=== PATIENT | female | born 1970 | race Caucasian/White ===

== ENCOUNTER 2020-05-14 10:50 | Outpatient (CLI) | payer OTHER, SELFPAY ==
--- NOTE | 2020-05-14 10:56 | MM_ITS ---
WS: [id number] Bilateral screening digital mammogram, 05/14/2020 Clinical Data: SCREENING Comparison: 12/05/2017, 03/13/2015, 04/12/2013. Findings: The breast parenchymal pattern shows fibroglandular tissue. No spiculated masses or clustered calcifi cations are seen. There are no secondary signs of carcinoma. MM/[id number] Impression: 1. Negative bilateral mammogram unchanged. 2. Recommend annual screening mammograms. BIRADS: 1-Negative FOLLOW UP: 1 Year Follow-up The CAD bad cloth checker was used.
== END 2020-05-14 10:51 | disposition home or self-care (01) ==
LOC: RADSHAW 10:55
PROVIDERS: PCP Nurse Practitioner Family; Visit Provider Nurse Practitioner Family
DX: Z12.31 Encounter for screening mammogram for malignant neoplasm of breast (principal)
CPT/HCPCS: 77067

== ENCOUNTER → 2020-10-22 10:08 | Outpatient (BNVA) | payer OTHER, SELFPAY | PROVIDERS: PCP Nurse Practitioner Family; Visit Provider Internal Medicine | DX: E11.65 Type 2 diabetes mellitus with hyperglycemia (principal); E66.9 Obesity, unspecified; E78.5 Hyperlipidemia, unspecified; I10 Essential (primary) hypertension | CPT/HCPCS: 99205 ==

== ENCOUNTER → 2021-09-09 08:30 | Outpatient (BNVA) | payer BC, SELFPAY | PROVIDERS: PCP Nurse Practitioner Family; Visit Provider Internal Medicine | DX: E11.65 Type 2 diabetes mellitus with hyperglycemia (principal); E78.2 Mixed hyperlipidemia; E66.9 Obesity, unspecified; Z79.4 Long term (current) use of insulin; Z79.84 Long term (current) use of oral hypoglycemic drugs; Z87.891 Personal history of nicotine dependence; Z68.36 Body mass index [BMI] 36.0-36.9, adult | CPT/HCPCS: 99214 ==

== ENCOUNTER 2021-10-15 10:08 | Emergency (ER) | payer BC, SELFPAY ==
[2021-10-15 10:34] VITALS: BP 179/103; PULSE 106; RESP 22; TEMP 36.2; O2SAT 97; BMI 35.5
--- NOTE | 2021-10-15 10:42 | XR_ITS ---
WS: [id number] XR knee LT 3V* [id number] REASON FOR EXAM: injury FINDINGS: No definite acute fracture identified. There is some deformity of the lateral tibial plateau which ma y represent an old injury. There is no associated focal bony exostosis of the articular lateral femoral condyle. There are also focal areas of cortical thickening along the lateral margin of the lateral tibial plateau. The medial knee joint space is relatively preserved with small marginal osteophytes. Lateral knee filippo nt space demonstrates mild narrowing of its lateral most aspect. There appear to be multiple loose bodies within the knee joint. The patellofemoral joint space is intact. Enthesophytes from the ventral surface of the patella. Ther e appears to be a moderate knee joint effusion. There is a somewhat unusual appearing sclerosis and thickening of the tibial tuberosity and adjacent cortex. This is of unknown significance. XR/XR knee LT 3V* [id number] IMPRESSION: Multiple knee findings as above which may be related to previous trauma and pos ttraumatic osteoarthritis. No definite acute abnormality other than the presume d knee joint effusion noted.
[2021-10-15 10:44] VITALS: BP 179/103; PULSE 97; RESP 16; O2SAT 94
--- NOTE | 2021-10-15 10:54 | W.ED.EXTPRO ---
HPI - Extremity Problem General: Chief complaint: Extremity Injury, Lower Stated complaint: LEFT KNEE PAIN/INJURY Time Seen by Provider: 10/15/21 10:28 History of Present Illness: HPI Narrative: Patient states that she was out in the ER this morning her dogs were wrestling and knocked her down and she fell on a dirt road with her left knee and felt immediate pain. She was able to get up after about 10 minutes and ambulate back to the house. Complaint: joint pain Onset (ago): minute(s) Pain Consistency: constant Location: left and knee Severity scale (1-10): 4 Quality: aching Relieving factors: immobilization Exacerbating factors: range of motion and weight bearing Associated symptoms: Reports no associated symptoms; Deny chest pain, fever(s) or rash Review of Systems Const: Denies: fever(s), chills or body aches Eyes: Denies: change in vision or blurry vision ENMT: Denies: throat pain or nasal congestion Card: Denies: chest pain or dyspnea on exertion Resp: Denies: dyspnea, productive cough or non-productive cough GI: Denies: abdominal pain, nausea or vomiting Musc: Reports: joint pain (Left knee is in pain after a fall this morning); Denies: extremity pain Skin/Breast: Denies: rash Neuro: Denies: headache(s) Psych: Denies: anxiety or depression Sheldon/Lymph: Denies: easy bruising PFSH ED PFSH: Medical History (Updated 10/15/21 @ 11:32 by YUMIKO Vallecillo) HTN (hypertension) Hyperlipidemia Torn ACL Surgical History Hx of knee surgery Family History Other Obesity Social History Smoking and tobacco status: former smoker Alcohol intake: current Alcohol intake frequency: holidays/special occasions only Alcohol type: beer Household members: spouse Marital status: Number of children: 0 service: No Current occupational status: employed Current occupation: [employer] Current occupational exposures/hazards: Yes Physical Exam Const: COMMON NORMALS: no acute distress GENERAL APPEARANCE: cooperative Resp: COMMON NORMALS: normal respiratory effort Extremity: LEFT LOWER EXTREMITY: Yes knee joint (Tenderness to medial aspect. No bruising or swelling noted. Neurovascular) Left knee: Yes ROM (Pain with range of motion with extension and flexion.) Course Vital Signs: Vital signs: Vital Signs Temperature 97.1 F L 10/15/21 10:34 Pulse Rate 97 10/15/21 10:44 Respiratory Rate 16 10/15/21 10:44 Blood Pressure 179/103 10/15/21 10:44 Pulse Oximetry 94 10/15/21 10:44 MDM - Extremity (Nontraumatic) MDM Narrative: Medical decision making narrative: Patient has chronic knee problems already. Patient fell today and injured her knee worse. 4 years ago which received stem cell replacement from Dr. Alberto in both knees and she has had good success with that. X-ray shows chronic changes at left knee mild effusion. Patient was encouraged to follow-up with Dr. Alberto. Patient says she has brace and crutches she will use at home. Discharge Plan Discharge Patient Disposition: Home Clinical Impression: Acute knee pain Qualifiers: Laterality: left Qualified Code(s): M25.562 - Pain in left knee Condition: Stable Prescriptions: New Celebrex 100 mg capsule 100 mg PO BID Qty: 20 RF: 0 Voltaren Arthritis Pain 1 % gel 4 g topical QID Qty: 100 RF: 0 No Action metoprolol succinate 25 mg tablet extended release 24 hr 25 mg PO DAILY RF: 0 Trulicity 1.5 mg/0.5 mL pen injector SUBCUT RF: 0 atorvastatin 10 mg tablet 10 mg PO DAILY RF: 0 lisinopril 40 mg tablet 40 mg PO DAILY RF: 0 sertraline 25 mg tablet 25 mg PO DAILY RF: 0 trazodone 100 mg tablet 100 mg PO .HS RF: 0 glipizide 10 mg tablet 10 mg PO BID RF: 0 Lantus U-100 Insulin 100 unit/mL solution 72 unit SUBCUT DAILY RF: 0 metformin 1,000 mg tablet 1,000 mg PO BID Qty: 120 RF: 3 Discharge Orders: Discharge ED (Routine); Ordered 10/15/21 Ordered By: Jos Andrews Referrals: Loni Weber FNP [Primary Care Provider] - Discharge Diet: Usual diet Discharge Activity: Increase activity as tolerated Patient Instructions: Knee Sprain (ED) Activity Restrictions/Additional Instructions: Follow-up with medical provider as directed. Take medications as prescribed. Return to the ER or your medical provider if condition worsens. Please read and understand discharge instructions. If any questions ask please. Use brace and/or crutches that you have at home as needed. Follow-up with Dr. Alberto concerning treatment of chronic knee problems. Coding Level of Care Code ED City Designer for Jayce Jones Exam Expanded Problem Focused
[2021-10-15] MEDS: CELEcoxib 200 mg Capsule 400 MG PO (11:16)
[2021-10-15 11:43] VITALS: BP 195/92; PULSE 83; O2SAT 95
== END 2021-10-15 11:45 | disposition home or self-care (01) ==
PROVIDERS: Emergency Provider Nurse Practitioner Family; PCP Nurse Practitioner Family
DX: M25.562 Pain in left knee (principal); Z79.84 Long term (current) use of oral hypoglycemic drugs; Z79.4 Long term (current) use of insulin; I10 Essential (primary) hypertension; E78.5 Hyperlipidemia, unspecified; Z87.891 Personal history of nicotine dependence
CPT/HCPCS: 73562; 99283

== ENCOUNTER 2022-04-26 10:17 | Outpatient (CLI) | payer BC, SELFPAY ==
[2022-04-26 15:52] LABS: Estmated Average Glucose 200; Hemoglobin A1C 8.6 % (4.0-6.0)
== END 2022-04-26 10:18 | disposition home or self-care (01) ==
LOC: LAB 10:19
PROVIDERS: PCP Nurse Practitioner Family; Visit Provider Internal Medicine
DX: E11.65 Type 2 diabetes mellitus with hyperglycemia (principal)
CPT/HCPCS: 83036

== ENCOUNTER 2022-07-05 12:37 | Outpatient (CLI) | payer BC, SELFPAY ==
[2022-07-05 14:02] LABS: Estmated Average Glucose 183
[2022-07-05 14:22] LABS: Alanine Aminotransferase 11 U/L (0-33); Albumin Level 4.2 g/dL (3.5-5.2); Alkaline Phosphatase 54 U/L (35-105); Aspartate Amino Transferase 11 U/L (0-32); Blood Urea Nitrogen 9 mg/dL (6-20); Calcium 9.1 mg/dL (8.5-10.5); Carbon Dioxide 24 mmol/L (22-29); Chloride 103 mmol/L (98-107); Chol HDL Ratio 3.87 mg/dL (0.0-4.40); Cholesterol 147 mg/dL (0-200); Globulin 2.6 g/dL (1.3-4.6); Glomerular Filtration Rate 66.5 mL/min (90-130); Glucose 87 mg/dL (65-115); HDL Cholesterol 38 mg/dL (60-100); LDL Cholesterol Calculated 82 mg/dL (50-129); LDL HDL Ratio 2.16 RATIO (0.00-3.22); Osmolality Calculated 288 mOsm/kg (285-295); Sodium 140 mmol/L (136-145); Total Bilirubin 0.5 mg/dL (0.15-1.2); Total Protein 6.8 g/dL (6.6-8.7); Triglycerides 136 mg/dL (0-150)
== END 2022-07-05 12:38 | disposition home or self-care (01) ==
LOC: LAB 12:41
PROVIDERS: PCP Nurse Practitioner Family; Visit Provider Internal Medicine
DX: E11.65 Type 2 diabetes mellitus with hyperglycemia (principal); E66.9 Obesity, unspecified; E78.5 Hyperlipidemia, unspecified
CPT/HCPCS: 80053; 80061; 83036

== ENCOUNTER 2022-10-06 09:18 | Outpatient (CLI) | payer BC, SELFPAY ==
[2022-10-06 10:08] LABS: Estmated Average Glucose 237; Hemoglobin A1C 9.9 % (4.0-6.0)
[2022-10-06 10:19] LABS: Alanine Aminotransferase 17 U/L (0-33); Albumin Level 3.9 g/dL (3.5-5.2); Alkaline Phosphatase 57 U/L (35-105); Anion Gap 15.2 (5-19); Aspartate Amino Transferase 14 U/L (0-32); Blood Urea Nitrogen 9 mg/dL (6-20); Calcium 8.6 mg/dL (8.5-10.5); Carbon Dioxide 23 mmol/L (22-29); Chloride 103 mmol/L (98-107); Chol HDL Ratio 4.06 mg/dL (0.0-4.40); Cholesterol 138 mg/dL (0-200); Globulin 2.6 g/dL (1.3-4.6); Glomerular Filtration Rate 75.9 mL/min (90-130); Glucose 232 mg/dL (65-115); HDL Cholesterol 34 mg/dL (60-100); LDL Cholesterol Calculated 68 mg/dL (50-129); Osmolality Calculated 290 mOsm/kg (285-295); Potassium 4.2 mmol/L (3.5-5.1); Sodium 137 mmol/L (136-145); Total Bilirubin 0.8 mg/dL (0.15-1.2); Total Protein 6.5 g/dL (6.6-8.7); Triglycerides 182 mg/dL (0-150)
[2022-10-06 15:25] LABS: Creatinine Urine, Random 143 mg/dL (28-217); Microalbum Creatinine Ratio Ur 7 mg/dL (0-20); Microalbumin Random Urine 1 ug/dL (0-20)
== END 2022-10-06 09:19 | disposition home or self-care (01) ==
PROVIDERS: PCP Nurse Practitioner Family; Visit Provider Internal Medicine
DX: E11.65 Type 2 diabetes mellitus with hyperglycemia (principal); E78.5 Hyperlipidemia, unspecified
CPT/HCPCS: 36415; 80053; 80061; 82044; 83036

== ENCOUNTER 2023-01-04 10:21 | Outpatient (CLI) | payer BC, SELFPAY ==
[2023-01-04 11:33] LABS: Creatinine Urine, Random 91 mg/dL (28-217); Microalbumin Random Urine 4 ug/dL (0-20)
[2023-01-04 11:33] LABS: Alanine Aminotransferase 10 U/L (0-33); Albumin Level 4.4 g/dL (3.5-5.2); Alkaline Phosphatase 64 U/L (35-105); Aspartate Amino Transferase 8 U/L (0-32); Blood Urea Nitrogen 11 mg/dL (6-20); Calcium 8.7 mg/dL (8.5-10.5); Carbon Dioxide 21 mmol/L (22-29); Chloride 102 mmol/L (98-107); Chol HDL Ratio 5.15 mg/dL (0.0-4.40); Cholesterol 170 mg/dL (0-200); Globulin 2.9 g/dL (1.3-4.6); Glomerular Filtration Rate 75.9 mL/min (90-130); Glucose 348 mg/dL (65-115); HDL Cholesterol 33 mg/dL (60-100); LDL Cholesterol Calculated 62 mg/dL (50-129); LDL HDL Ratio 1.88 RATIO (0.00-3.22); Osmolality Calculated 297 mOsm/kg (285-295); Sodium 137 mmol/L (136-145); Total Protein 7.3 g/dL (6.6-8.7); Triglycerides 374 mg/dL (0-150)
[2023-01-04 11:37] LABS: Microalbum Creatinine Ratio Ur 44 mg/dL (0-20)
[2023-01-04 11:59] LABS: Estmated Average Glucose 263; Hemoglobin A1C 10.8 % (4.0-6.0)
== END 2023-01-04 10:22 | disposition home or self-care (01) ==
PROVIDERS: PCP Nurse Practitioner Family; Visit Provider Internal Medicine
DX: E11.65 Type 2 diabetes mellitus with hyperglycemia (principal); E78.2 Mixed hyperlipidemia
CPT/HCPCS: 36415; 80053; 80061; 82044; 83036

== ENCOUNTER 2023-05-12 10:17 | Outpatient (CLI) | payer BC, SELFPAY ==
[2023-05-12 11:21] LABS: Estmated Average Glucose 255; Hemoglobin A1C 10.5 % (4.0-6.0)
[2023-05-12 11:27] LABS: Alanine Aminotransferase 19 U/L (0-33); Albumin Level 4.4 g/dL (3.5-5.2); Alkaline Phosphatase 53 U/L (35-105); Anion Gap 13.7 (5-19); Aspartate Amino Transferase 21 U/L (0-32); Blood Urea Nitrogen 10 mg/dL (6-20); Calcium 9.1 mg/dL (8.5-10.5); Carbon Dioxide 27 mmol/L (22-29); Chloride 104 mmol/L (98-107); Chol HDL Ratio 4.15 mg/dL (0.0-4.40); Cholesterol 170 mg/dL (0-200); Globulin 2.4 g/dL (1.3-4.6); Glomerular Filtration Rate 66.3 mL/min (90-130); Glucose 135 mg/dL (65-115); HDL Cholesterol 41 mg/dL (60-100); LDL Cholesterol Calculated 92 mg/dL (50-129); LDL HDL Ratio 2.24 RATIO (0.00-3.22); Osmolality Calculated 291 mOsm/kg (285-295); Potassium 4.7 mmol/L (3.5-5.1); Sodium 140 mmol/L (136-145); Total Bilirubin 0.7 mg/dL (0.15-1.2); Total Protein 6.8 g/dL (6.6-8.7); Triglycerides 187 mg/dL (0-150)
[2023-05-12 12:00] LABS: Creatinine Urine, Random 201 mg/dL (28-217); Microalbum Creatinine Ratio Ur 10 mg/dL (0-20); Microalbumin Random Urine 2 ug/dL (0-20)
== END 2023-05-12 10:18 | disposition home or self-care (01) ==
PROVIDERS: PCP Nurse Practitioner Family; Visit Provider Internal Medicine
DX: E11.65 Type 2 diabetes mellitus with hyperglycemia (principal)
CPT/HCPCS: 36415; 80053; 80061; 82044; 83036

== ENCOUNTER 2023-07-20 10:02 | Outpatient (CLI) | payer BC, SELFPAY ==
--- NOTE | 2023-07-20 10:08 | MM_ITS ---
WS: [id number] Bilateral screening 3D tomosynthesis digital mammogram, 07/20/2023 Clinical Data: SCREENING Comparison: 05/14/2020, 12/05/2017, 03/13/2015, 05/02/2013. Findings: The breast parenchymal pattern shows fibroglandular tissue. No spiculated masses or clustered calcifi cations are seen. There are no secondary signs of carcinoma. Impression: 1. Negative bilateral mammogram unchanged. 2. Recommend annual screening mammograms. MM/[place] [id number] BIRADS: 1-Negative FOLLOW UP: 1 Year Follow-up The CAD report checker was used.
== END 2023-07-20 10:03 | disposition home or self-care (01) ==
LOC: RAD 10:03
PROVIDERS: PCP Nurse Practitioner Family; Visit Provider Nurse Practitioner Family
DX: Z12.31 Encounter for screening mammogram for malignant neoplasm of breast (principal)
CPT/HCPCS: 77063; 77067

== ENCOUNTER → 2023-11-03 11:44 | Outpatient (BNVA) | payer BC, SELFPAY | PROVIDERS: Visit Provider Internal Medicine | DX: E11.65 Type 2 diabetes mellitus with hyperglycemia (principal); Z79.899 Other long term (current) drug therapy | CPT/HCPCS: 36415; 80053; 80061; 82044; 83036 ==

== ENCOUNTER 2024-02-02 10:48 | Outpatient (CLI) | payer BC, SELFPAY ==
[2024-02-02 11:33] LABS: Alanine Aminotransferase 13 U/L (0-33); Alkaline Phosphatase 102 U/L (35-105); Aspartate Amino Transferase 13 U/L (0-32); Blood Urea Nitrogen 11 mg/dL (6-20); Calcium 8.5 mg/dL (8.5-10.5); Carbon Dioxide 27 mmol/L (22-29); Chloride 102 mmol/L (98-107); Chol HDL Ratio 5.17 mg/dL (0.0-4.40); Cholesterol 181 mg/dL (0-200); Globulin 2.9 g/dL (1.3-4.6); Glomerular Filtration Rate 88.2 mL/min (90-130); Glucose 164 mg/dL (65-115); HDL Cholesterol 35 mg/dL (60-100); Osmolality Calculated 289 mOsm/kg (285-295); Sodium 138 mmol/L (136-145); Total Bilirubin 0.7 mg/dL (0.15-1.2); Total Protein 6.9 g/dL (6.6-8.7); Triglycerides 431 mg/dL (0-150)
[2024-02-02 11:34] LABS: Estmated Average Glucose 315; Hemoglobin A1C 12.6 % (4.0-6.0)
[2024-02-02 11:36] LABS: Anion Gap 12.8 (5-19); Potassium 3.8 mmol/L (3.5-5.1)
[2024-02-02 11:37] LABS: Creatinine Urine, Random 237 mg/dL (28-217); Microalbum Creatinine Ratio Ur 21 mg/dL (0-20); Microalbumin Random Urine 5 ug/dL (0-20)
[2024-02-02 11:48] LABS: LDL Cholesterol Direct 110 mg/dL (0-100)
== END 2024-02-02 10:49 | disposition home or self-care (01) ==
LOC: LAB 10:49
PROVIDERS: PCP Nurse Practitioner Family; Visit Provider Internal Medicine
DX: E11.65 Type 2 diabetes mellitus with hyperglycemia (principal)
CPT/HCPCS: 36415; 80053; 80061; 82044; 83036; 83721

== ENCOUNTER 2024-03-19 12:36 | Outpatient (CLI) | payer BC, SELFPAY ==
--- NOTE | 2024-03-19 12:45 | XRR_ITS ---
PROCEDURE INFORMATION: Exam: XR Thoracic Spine Exam date and time: 03/19/2024 12:49 PM Age: 53 years old Clinical indication: Pain in thoracic spine; Patient HX: --muscle spasm in back, though it was pulled muscle getting worse over the last 2 months; Additional info: Muscle spasm of back / pain in thoracic spine TECHNIQUE: Imaging protocol: Radiologic exam of the thoracic spine. Views: 3 views. COMPARISON: No relevant prior studies available. FINDINGS: Bones/joints: Very mild S shaped scoliosis. Mild kyphosis. Two very mild anterior wedge compression deformities in consecutive vertebral bodies involving what is believed to be T12 and L1 are probably chronic, but are of uncertain age. Minimal and mild multilevel spondylosis. Soft tissues: Unremarkable. XR/XR thoracic spine 2V [id number] IMPRESSION: 1. Probably chronic mild compression deformities of what are believed to be T12 and L1 vertebral bodies, but are of uncertain age. These could be acute or subacute if there is point tenderness in these locations. 2. Additional.
== END 2024-03-19 12:37 | disposition home or self-care (01) ==
LOC: RAD 12:42
PROVIDERS: PCP Nurse Practitioner Family; Visit Provider Nurse Practitioner Family
DX: M62.830 Muscle spasm of back (principal); M54.6 Pain in thoracic spine; M43.8X9 Other specified deforming dorsopathies, site unspecified; M47.9 Spondylosis, unspecified; M41.9 Scoliosis, unspecified
CPT/HCPCS: 72070

== ENCOUNTER → 2024-04-17 10:46 | Outpatient (CLI) | payer BC, SELFPAY ==
--- NOTE | 2024-04-17 10:51 | MR_ITS ---
WS: [id number] MRI THORACIC SPINE noncontrast. HISTORY: WEDGE COMPRESSION FX/PAIN IN THORACIC SPINE COMPARISON: Thoracic radiograph 03/19/2024 TECHNIQUE: Multiplanar sequences are performed in sagittal and axial planes. Posterior thoracic alignment appears normal. Disc bases are mildly narrowed and desiccated. Very slig ht anterior wedging of T11 and T12. No marrow edema. Signal within the thoracic cord appears normal. There are multifocal areas of stenosis which will be described at individual disc levels. T1-2: Bilateral paracentral disc protrusions and facet arthritis. T2-3: Moderate LEFT paracentral disc protrusion and LEFT foraminal stenosis. Deformity of the LEFT la teral thoracic cord. T3-4: Small central disc protrusion. T4-5: There is a large central disc protrusion contacting and effacing the CSF and deforming the thor acic cord. Severe facet and ligamentum flavum arthropathy. Slightly greater disc protrusion on the RI GHT. Cord is being deformed. Severe central with bilateral foraminal stenosis. T5-6: Small central disc protrusion with severe ligamentum flavum and facet arthritis. Minimal centra l with moderate bilateral foraminal stenosis. T6-7: Small central disc protrusion with severe facet and ligamentum flavum hypertrophy. Mild central with severe bilateral foraminal stenosis. T7-8: Large central disc protrusion deforming the central canal and thecal sac. Thoracic cord is bein g displaced. Severe ligamentum flavum and facet arthritis. Severe central and bilateral foraminal agineszka nosis. T8-9: Moderate size central disc protrusion with severe facet and ligamentum flavum hypertrophy. Mode rate central with severe bilateral foraminal stenosis. T9-10: Small central disc protrusion with severe ligamentum flavum and facet arthritis. Moderate cent ral with severe foraminal stenosis. T10-11: Small RIGHT paracentral disc protrusion with annular fissure. Moderate facet arthritis. Moder ate foraminal and central stenosis. T11-12: Shallow LEFT paracentral disc protrusion and mild facet arthritis. T12-L1: Central disc protrusion with ligamentum flavum and facet arthritis. Mild central and bilatera l foraminal stenosis. Paravertebral soft tissues are negative. MR/MR thoracic spin wo con* [id number] IMPRESSION: 1. Advanced degenerative changes with disc and facet and ligamentum flavum dis ease throughout a large portion of the thoracic spine. Multilevel areas of cent ral and foraminal stenosis. 2. Thoracic cord is being deformed at several levels. Patient is at risk for c ord edema and myelomalacia. 3. T4-5: Large central disc protrusion effacing CSF and deforming the cord. Se werner central with bilateral foraminal stenosis. 4. T5-6: Small central disc protrusion, mild central with moderate bilateral f oraminal stenosis. 5. T6-7: Mild central with severe bilateral foraminal stenosis. 6. T7-8: Large central disc protrusion deforming the thecal sac and cord. Sheila re central and bilateral foraminal stenosis. 7. T8-9: Moderate central with severe bilateral foraminal stenosis. Moderate s ize central disc protrusion. 8. T9-10: Moderate central with severe bilateral foraminal stenosis. 9. T10-11: Moderate central and foraminal stenosis. 10. T12-L1: Central disc protrusion resulting in mild central and bilateral fo raminal stenosis. 11. No acute thoracic spine fracture.
== END | disposition home or self-care (01) ==
LOC: RAD 10:46
PROVIDERS: PCP Nurse Practitioner Family; Visit Provider Nurse Practitioner Family
DX: S22.080A Wedge compression fracture of T11-T12 vertebra, initial encounter for closed fracture (principal); X58.XXXA Exposure to other specified factors, initial encounter; M62.830 Muscle spasm of back; M47.894 Other spondylosis, thoracic region; M48.04 Spinal stenosis, thoracic region; M51.34 Other intervertebral disc degeneration, thoracic region; M51.35 Other intervertebral disc degeneration, thoracolumbar region; M48.05 Spinal stenosis, thoracolumbar region
CPT/HCPCS: 72146

== ENCOUNTER 2024-04-22 19:46 | Emergency (ER) | payer BC, SELFPAY ==
[2024-04-22 19:50] VITALS: BP 156/94; PULSE 106; RESP 17; TEMP 36.6; O2SAT 98; BMI 34.7
--- NOTE | 2024-04-22 20:14 | W.ED.NAVMDI ---
HPI - Nausea/Vomiting/Diarrhea General: Chief complaint: Nausea/Vomiting/Diarrhea Stated complaint: Vomiting\Back Pain Time Seen by Provider: 04/22/24 20:07 History of Present Illness: 53-year-old female comes in today for complaints of nausea vomiting and back pain starting this afternoon around 2:00 after eating at [employer]. Patient reports eating a macias egg and cheese sandwich and since then having persistent vomiting which is aggravated her chronic back pain. Patient's only surgeries that she has had have been for her ankle and knee. Patient does have a history of type 2 diabetes. Patient does have thoracic back degeneration and is scheduled to see orthopedic spine. Patient denies any history of kidney stones. Patient does still have her gallbladder and appendix. Patient appears unwell but not toxic. Patient appears in moderate to severe pain. Associated nausea: Yes Associated symtoms: Reports nausea Review of Systems General: Reports: 10 or more systems reviewed and unremarkable except in HPI and below GI: Reports: abdominal pain, nausea and vomiting PFS ED PFSH: Medical History Conjunctivitis, left eye Torn ACL HTN (hypertension) Hyperlipidemia Surgical History Hx of knee surgery Family History Other Obesity Social History Smoking and tobacco/nicotine status: never used tobacco/nicotine Alcohol intake: current Alcohol intake frequency: holidays/special occasions only Alcohol type: beer Substance/Drug Use: never Household members: spouse Marital status: Number of children: 0 service: No Current occupational status: employed Current occupation: [employer] Current occupational exposures/hazards: Yes Physical Exam Const: COMMON NORMALS: alert HENMT: COMMON NORMALS: normocephalic HEAD & SCALP: normocephalic Neck/C-Spine: COMMON NORMALS: full ROM Resp: COMMON NORMALS: normal respiratory effort and clear to auscultation bilaterally AUSCULTATION: clear to auscultation bilaterally Cardio: COMMON NORMALS: regular rate and regular rhythm RATE: regular rate RHYTHM: regular rhythm GI: AUSCULTATION: Yes normoactive bowel sounds PALPATION: Yes Firmness to palpation present (GI) and Yes Tenderness to palpation present (GI) Back/Pelvis: COMMON NORMALS: thoracic and lumbar spine normal to inspection Extremity: COMMON NORMALS: full ROM Neuro: SENSORIUM/ORIENTATION: Yes alert Skin: COMMON NORMALS: turgor normal GENERAL SKIN EXAM: turgor normal Course Vital Signs: Vital signs: Vital Signs Temperature 97.9 F 04/22/24 19:50 Pulse Rate 99 04/22/24 22:17 Respiratory Rate 16 04/22/24 22:17 Blood Pressure 156/94 04/22/24 19:50 Pulse Oximetry 96 04/22/24 22:17 Oxygen Delivery Me thod Room Air 04/22/24 19:50 MDM - Nausea/Vomiting/Diarrhea Medical Decision Making 53-year-old female comes in today for complaints of nausea vomiting and back pain. On exam patient appears in moderate to severe pain. Respirations are even lungs are clear to auscultation. Abdomen is tender generalized. Vital signs are normal except for some elevated blood pressure. Differential diagnosis includes but not limited to gallbladder disease, ACS, gastroenteritis, gastritis, renal calculi, back pain. CBC had some elevation in white blood cell count 19.6, RBCs was elevated at 5.7, creatinine 0.8, sodium was 143, urine specific gravity was 1.005, white blood cells was 5-10, CT of the abdomen and pelvis noted fluid in the small bowel suggestive of infectious process. Patient had significant improvement after IV fluids and medications. We have patient most likely had food poisoning. Urine will be sent for culture for further evaluation. Patient will continue with Zofran as needed for nausea. Patient will return to ER for worsening symptoms such as fever greater than 100.4, blood in vomit or stool, or new concerns. Lab Data 04/22/24 20:20 04/22/24 20:20 Radiology Impressions Abdomen/Pelvis CT 04/22/24 20:41 IMPRESSION: Fluid seen within small bowel can be correlated for infectious process or other secretory or osmotic process. Additional details as above. Laboratory Results WBC 19.64 10^3/uL (3.29-11.43) H 04/22/24 20:20 RBC 5.72 10^6/uL (3.85-5.65) H 04/22/24 20:20 Hgb 16.20 g/dL (11.27-16.99) 04/22/24 20:20 Hct 48.1 % (36-47) H 04/22/24 20:20 MCV 84.1 fl (85-98) L 04/22/24 20:20 MCH 28.3 pg (27-33) 04/22/24 20:20 MCHC 33.7 g/dL (30-55) 04/22/24 20:20 RDW 12.7 % (12.1-15.1) 04/22/24 20:20 Plt Count 385 10^3/cmm (157-399) 04/22/24 20:20 MPV 8.9 fL (7.4-10.4) 04/22/24 20:20 Neut % (Auto) 82.7 % 04/22/24 20:20 Lymph % (Auto) 9.7 % 04/22/24 20:20 [place] % (Auto) 4.4 % 04/22/24 20:20 Eos % (Auto) 2.2 % 04/22/24 20:20 Baso % (Auto) 0.4 % 04/22/24 20:20 Neut # (Auto) 16.24 10^3/uL (1.8-7.7) H 04/22/24 20:20 Lymph # (Auto) 1.9 10^3/uL (0.8-4.8) 04/22/24 20:20 [place] # (Auto) 0.9 10^3/uL (0.2-0.9) 04/22/24 20:20 Eos # (Auto) 0.4 10^3/uL (0.0-0.8) 04/22/24 20:20 Baso # (Auto) 0.1 10^3/uL (0.0-0.1) 04/22/24 20:20 Nucleated RBC % (auto) 0 % 04/22/24 20:20 Nucleated RBCs # 0.0 /100WBC 04/22/24 20:20 Sodium 143 mmol/L (136-145) 04/22/24 20:20 Potassium 3.9 mmol/L (3.5-5.1) 04/22/24 20:20 Chloride 107 mmol/L (98-107) 04/22/24 20:20 Carbon Dioxide 24 mmol/L (22-29) 04/22/24 20:20 Anion Gap 15.9 (5-19) 04/22/24 20:20 BUN 16 mg/dL (6-20) 04/22/24 20:20 Creatinine 0.8 mg/dL (0.5-0.9) 04/22/24 20:20 GFR Calculation 75.6 mL/min (90-130) L 04/22/24 20:20 Glucose 77 mg/dL (65-115) 04/22/24 20:20 Calculated Osmolality 296 mOsm/kg (285-295) H 04/22/24 20:20 Calcium 9.5 mg/dL (8.5-10.5) 04/22/24 20:20 Total Bilirubin 0.7 mg/dL (0.15-1.2) 04/22/24 20:20 AST 16 U/L (0-32) 04/22/24 20:20 ALT 16 U/L (0-33) 04/22/24 20:20 Alkaline Phosphatase 79 U/L (35-105) 04/22/24 20:20 Troponin T Baseline 9 ng/L (0-10) 04/22/24 20:20 Total Protein 7.3 g/dL (6.6-8.7) 04/22/24 20:20 Albumin 4.6 g/dL (3.5-5.2) 04/22/24 20:20 Globulin 2.7 g/dL (1.3-4.6) 04/22/24 20:20 Lipase 48 U/L (13-60) 04/22/24 20:20 Urine Color Yellow (Yellow) 04/22/24 21:50 Urine Appearance Clear (CLEAR) 04/22/24 21:50 Urine pH 6.5 (5-7) 04/22/24 21:50 Ur Specific [place] 1.005 (1.005-1.030) 04/22/24 21:50 Urine Protein 1+ (Negative) H 04/22/24 21:50 Urine Glucose (UA) Norm (Normal) 04/22/24 21:50 Urine Ketones Negative (Negative) 04/22/24 21:50 Urine Blood Neg (Negative) 04/22/24 21:50 Urine Nitrate Positive (Negative) A 04/22/24 21:50 Urine Bilirubin Neg (Negative) 04/22/24 21:50 Urine Urobilinogen Neg mg/dL (Negative) 04/22/24 21:50 Ur Leukocyte Esterase Trace (Negative) H 04/22/24 21:50 Urine RBC 0-4 /hpf (0-2) H 04/22/24 21:50 Urine WBC 5-10 /hpf (0-5) H 04/22/24 21:50 Ur Squamous Epith Cells 0-4 /hpf (0-5) H 04/22/24 21:50 Amorphous Sediment Not Reportable 04/22/24 21:50 Urine Bacteria 1+ /hpf (NONE) H 04/22/24 21:50 Urine Mucus Trace /hpf 04/22/24 21:50 All radiology interpretation(s) finalized by discharge Discharge Plan Discharge Patient Disposition: Home Clinical Impression: Food poisoning Condition: Stable Prescriptions: New ondansetron 4 mg tablet,disintegrating 4 mg PO Q8H PRN (Reason: nausea and vomiting) Qty: 10 0RF No Action metoprolol succinate 25 mg tablet extended release 24 hr 25 mg PO DAILY atorvastatin 10 mg tablet 10 mg PO DAILY lisinopril 40 mg tablet 40 mg PO DAILY sertraline 25 mg tablet 25 mg PO DAILY trazodone 100 mg tablet 100 mg PO .HS glipizide 10 mg tablet 10 mg PO BID Ozempic 2 mg/dose (8 mg/3 mL) pen injector 2 mg SUBCUT Q7D 90 Days Qty: 9 0RF Ozempic 1 mg/dose (4 mg/3 mL) pen injector See Rx Instructions .ROUTE .COMPLEX Qty: 3 0RF Dose Instruction: INJECT 1 MG UNDER THE SKIN ONCE WEEKLY Rx Instructions: INJECT 1 MG UNDER THE SKIN ONCE WEEKLY x one month erythromycin 5 mg/gram (0.5 %) ointment 0.5 inch ophthalmic (eye) BID Qty: 3.5 0RF atorvastatin 20 mg tablet See Rx Instructions .ROUTE .COMPLEX Qty: 60 0RF Dose Instruction: TAKE 1 TABLET BY MOUTH DAILY Rx Instructions: TAKE 1 TABLET BY MOUTH DAILY (DME) pen needle, diabetic [BD Ultra-Fine Micro Pen Needle] 32 gauge x 1/4 needle See Rx Instructions .MEDSUPPLY Qty: 180 3RF Rx Instructions: As directed Humulin R U-500 (Conc) Kwikpen 500 unit/mL (3 mL) insulin pen 50 unit SUBCUT QID Qty: 36 1RF (DME) FreeStyle Rajat 3 Sensor Device See Rx Instructions .Route Qty: 2 3RF Rx Instructions: As directed metformin 1,000 mg tablet See Rx Instructions .ROUTE .COMPLEX Qty: 180 0RF Dose Instruction: TAKE 1 TABLET(1000 MG) BY MOUTH TWICE DAILY Rx Instructions: TAKE 1 TABLET(1000 MG) BY MOUTH TWICE DAILY Celebrex 100 mg capsule 100 mg PO BID Qty: 20 0RF Voltaren Arthritis Pain 1 % gel 4 g topical QID Qty: 100 0RF Rx Instructions: apply to single knee, ankle, foot; for foot includes sole/toes/top of foot Discharge Orders: Discharge ED (Routine); Ordered 04/22/24 Ordered By: Rupert Khalil Referrals: Loni Weber FNP [Primary Care Provider] - Discharge Diet: Advance as tolerated Discharge Activity: Increase activity as tolerated Patient Instructions: Food Poisoning (ED) Activity Restrictions/Additional Instructions: Start with clear liquid diet and increase as tolerated. Follow-up with primary care for further instructions. Return to ED for worsening symptoms such as fever greater than 100.4, blood in vomit or stool, or continued inability to hold fluids down. Coding Level of Care Code ED Form Building Supervisor for Jayce Jones
--- NOTE | 2024-04-22 20:17 | ECG_ITS ---
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 Measurements Intervals [place] Rate: 113 P: 33 MS: 142 QRS: 34 QRSD: 85 T: 12 QT: 341 QTc: 468 Interpretive Statements SINUS TACHYCARDIA INDETERMINATE AXIS POSSIBLE ANTERIOR MYOCARDIAL INFARCTION , PROBABLY OLD [30 ms Q WAVE IN V3/V4, OR R < 0.2 mV IN V4] ABNORMAL RHYTHM ECG No previous ECG available for comparison Electronically Signed On 04-23-2024 9:22:21 CDT by Doe Rodriguez M.D. [email or web address]
[2024-04-22] MEDS: sodium chloride 0.9% 1,000 ML 999 ML IV (20:24)
[2024-04-22 20:27] VITALS: RESP 18; O2SAT 95
[2024-04-22] MEDS: morphine 4 mg/mL SDV 1 mL IVP (20:27)
[2024-04-22 20:28] LABS: Basophils # 0.1 10^3/uL (0.0-0.1); Basophils % 0.4 %; Eosinophils # 0.4 10^3/uL (0.0-0.8); Eosinophils % 2.2 %; Hematocrit 48.1 % (36-47); Lymphocytes # 1.9 10^3/uL (0.8-4.8); Lymphocytes % 9.7 %; Mean Corpuscular HGB Conc 33.7 g/dL (30-55); Mean Corpuscular Hemoglobin 28.3 pg (27-33); Mean Corpuscular Volume 84.1 fl (85-98); Mean Platelet Volume 8.9 fL (7.4-10.4); Monocytes # 0.9 10^3/uL (0.2-0.9); Monocytes % 4.4 %; Neutrophils # 16.24 10^3/uL (1.8-7.7); Neutrophils % 82.7 %; Nucleated Red Blood Cells % 0 %; Platelet Count 385 10^3/cmm (157-399); Red Blood Count 5.72 10^6/uL (3.85-5.65); Red Cell Distribution Width 12.7 % (12.1-15.1); White Blood Count 19.64 10^3/uL (3.29-11.43)
[2024-04-22] MEDS: metoclopramide 5 mg/mL SDV 2 mL 10 MG IVP (20:29)
[2024-04-22] MEDS: diphenhydrAMINE 50 mg/mL SDV 1mL 25 MG IVP (20:29)
[2024-04-22 20:36] VITALS: PULSE 100; RESP 20; O2SAT 95
--- NOTE | 2024-04-22 20:41 | CTR_ITS ---
PROCEDURE INFORMATION: Exam: CT Abdomen And Pelvis With Contrast Exam date and time: 04/22/2024 8:49 PM Age: 53 years old Clinical indication: Nausea and vomiting; Abdominal pain; Generalized; Patient HX: Diffuse abd and back pain with n/v. ; Additional info: Abd pain radiating to back TECHNIQUE: Imaging protocol: Computed tomography of the abdomen and pelvis with contrast. Radiation optimization: All CT scans at this facility use at least one of these dose optimization techniques: automated exposure control; mA and/or kV adjustment per patient size (includes targeted exams where dose is matched to clinical indication); or iterative reconstruction. Contrast material: OMNI 350; Contrast volume: 100 ml; Contrast route: INTRAVENOUS (IV); COMPARISON: MR thoracic spin wo con* [id number] 04/17/2024 11:01 AM RADIATION DOSE METRICS: Total DLP (mGy-cm): 958.32 FINDINGS: Liver: Normal. No mass. Gallbladder and biliary ducts: Normal. No calcified stones. No ductal dilation. Pancreas: Normal. No ductal dilation. Spleen: Normal. No splenomegaly. Adrenal glands: Normal. No mass. Kidneys and ureters: Normal. No hydronephrosis. Stomach and bowel: Moderately extensive small bowel fluid is noted and small bowel is upper limits normal in caliber. Small bowel caliber changes are gradual. Moderate to large gastric fluid. Appendix: No evidence of appendicitis. Intraperitoneal space: Mild haziness of small bowel mesentery noted. Vasculature: Unremarkable. No abdominal aortic aneurysm. Lymph nodes: Unremarkable. No enlarged lymph nodes. Urinary bladder: Unremarkable as visualized. Reproductive: Uterine fibroids with larger measuring 2.8 cm. Bones/joints: No acute fracture. Soft tissues: Unremarkable. CT/CT abdomen pelvis w con* [id number] IMPRESSION: Fluid seen within small bowel can be correlated for infectious process or other secretory or osmotic process. Additional details as above.
[2024-04-22 20:47] LABS: Troponin(5th) Baseline 9 ng/L (0-10)
[2024-04-22 20:50] LABS: Alanine Aminotransferase 16 U/L (0-33); Albumin Level 4.6 g/dL (3.5-5.2); Alkaline Phosphatase 79 U/L (35-105); Anion Gap 15.9 (5-19); Aspartate Amino Transferase 16 U/L (0-32); Blood Urea Nitrogen 16 mg/dL (6-20); Calcium 9.5 mg/dL (8.5-10.5); Carbon Dioxide 24 mmol/L (22-29); Chloride 107 mmol/L (98-107); Creatinine Clr Calc Pharmacy 97.9625; Globulin 2.7 g/dL (1.3-4.6); Glomerular Filtration Rate 75.6 mL/min (90-130); Glucose 77 mg/dL (65-115); Lipase 48 U/L (13-60); Osmolality Calculated 296 mOsm/kg (285-295); Potassium 3.9 mmol/L (3.5-5.1); Sodium 143 mmol/L (136-145); Total Bilirubin 0.7 mg/dL (0.15-1.2); Total Protein 7.3 g/dL (6.6-8.7)
[2024-04-22] MEDS: iohexol 350 mg/mL 500 mL Btl (per mL) IV (20:53)
--- NOTE | 2024-04-22 20:56 | ECG_ITS ---
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 Measurements Intervals [place] Rate: 133 P: 268 [place]: 133 QRS: 62 QRSD: 106 T: 0 QT: 321 QTc: 478 Interpretive Statements JUNCTIONAL TACHYCARDIA MARKED ST DEPRESSION Compared to ECG 04/22/2024 20:17:27 Junctional tachycardia now present ST (T wave) deviation now present Sinus tachycardia no longer present Indeterminate axis no longer present Myocardial infarct finding no longer present Electronically Signed On 04-23-2024 9:23:52 CDT by Doe Rodriguez M.D. [id number]
--- NOTE | 2024-04-22 21:06 | PC.NURSE ---
pts CGM was showing a BS of 55. pt was given a sprite per [employer].
[2024-04-22 22:12] LABS: Add Urine Microscopic? YES; Bacteria Urine 1+ /hpf; Bilirubin Urine Neg (Negative); Blood Urine Neg (Negative); Glucose Urine UA Norm (Normal); Ketones Urine Negative (Negative); Leukocyte Esterase Urine Trace (Negative); Mucus Urine TRACE /hpf; Nitrate Urine Positive (Negative); Protein Urine 1+ (Negative); RBC Urine 0-4 /hpf (0-2); Specific Gravity, Urine 1.005 (1.005-1.030); Squamous Epithelial Cell Urine 0-4 /hpf (0-5); Urine Appearance Clear (CLEAR); Urine Color Yellow (Yellow); Urobilinogen Urine Neg (Negative); pH Urine 6.5 (5-7)
[2024-04-22 22:17] VITALS: PULSE 99; RESP 16; O2SAT 96
== END 2024-04-22 22:19 | disposition home or self-care (01) ==
PROVIDERS: Emergency Provider Nurse Practitioner Family; PCP Nurse Practitioner Family
DX: A05.9 Bacterial foodborne intoxication, unspecified (principal); Z79.85 Long-term (current) use of injectable non-insulin antidiabetic drugs; Z79.84 Long term (current) use of oral hypoglycemic drugs; Z79.4 Long term (current) use of insulin; I10 Essential (primary) hypertension; E78.5 Hyperlipidemia, unspecified
CPT/HCPCS: 74177; 80053; 81001; 83690; 84484; 85025; 93005; 96374; 96375; 99285; J1200; J2270; J2765; J7030; Q9967

== ENCOUNTER → 2024-04-26 10:49 | Outpatient (BNVA) | payer BC, SELFPAY | PROVIDERS: PCP Nurse Practitioner Family; Referring Provider Nurse Practitioner Family; Visit Provider Orthopaedic Surgery | DX: M47.894 Other spondylosis, thoracic region (principal); M54.9 Dorsalgia, unspecified | CPT/HCPCS: 72072 ==

== ENCOUNTER 2025-02-05 14:28 | Outpatient (RCR) | payer BC, SELFPAY | END 2025-03-02 23:55 | disposition home or self-care (01) | LOC: SPT 14:28 | PROVIDERS: Visit Provider Nurse Practitioner Family | DX: G95.9 Disease of spinal cord, unspecified (principal); M48.04 Spinal stenosis, thoracic region; M47.14 Other spondylosis with myelopathy, thoracic region; Z98.1 Arthrodesis status | CPT/HCPCS: 97110; 97116; 97161 ==

== ENCOUNTER 2025-02-08 10:31 | Outpatient (CLI) | payer BC, SELFPAY ==
--- NOTE | 2025-02-08 10:38 | MR_ITS ---
WS: [id number] MRI THORACIC SPINE noncontrast HISTORY: ARTHRODESIS STATUS COMPARISON: MRI thoracic spine 04/17/2024 TECHNIQUE: Multiplanar sequences are performed in sagittal and axial planes. Status post thoracic fusion hardware now present from T4-T6. Interbody spacers at T4-5 and probably at T5-6. There is significant artifact at the site of the fusion hardware obscuring detail. Posterior laminectomy defect noted at T4-5. May be at also at T6. Mild straightening of the normal cervical lordosis. No acute fractures. T1-2: Bilateral paracentral disc protrusions unchanged. T2-3: LEFT paracentral disc protrusion. Contacts the thecal sac. Similar to the prior study. T3-4: Increased soft tissue centrally. New central disc protrusion is not excluded. Thecal sac appears to be effaced and displaced posteriorly. Central foraminal stenosis. T4-5: Poorly visualized. No central stenosis. T5-6: No central stenosis. Foramina are poorly visualized. T6-7: Bilateral facet arthritis and foraminal narrowing. T7-8: Large central disc protrusion contacts the thecal sac and thoracic cord. Central and bilateral foraminal stenosis. T8-9: Bilateral facet arthritis and central disc protrusion. T9-10: Bilateral foraminal stenosis and mild central stenosis and facet arthritis. T10-11: Diffuse disc bulging with osteophytic ridging and facet arthritis. Mild central and bilateral foraminal stenosis. T11-12: Shallow LEFT paracentral disc protrusion. T12-L1: Small central disc protrusion with facet arthritis. Paravertebral soft tissues are negative. There is a small layering RIGHT pleural effusion which was not present on the prior study of 04/17/2024. MR/MR thoracic spin wo con* [id number] IMPRESSION: 1. Status post short segment thoracic spine fusion since 04/17/2024. There is s ignificant artifact at the level of the fusion. Hardware appears to extend from T4-T6. 2. New central disc protrusion at T3-4 causing central and foraminal stenosis. 3. Multilevel areas of marked facet joint arthritis and disc protrusions as ab ove. 4. T7-8: Large central disc protrusion contacts the thecal sac and cord. Centr al and bilateral foraminal stenosis. Similar to the prior study. 5. Mild central and foraminal stenosis at T9-10 and T11-12. 6. New small layering RIGHT pleural effusion. 7. Quality of this examination is compromised by artifact from the hardware.
== END 2025-02-08 10:32 | disposition home or self-care (01) ==
PROVIDERS: PCP Nurse Practitioner Family; Visit Provider Neurological Surgery
DX: Z98.1 Arthrodesis status (principal); R93.7 Abnormal findings on diagnostic imaging of other parts of musculoskeletal system; M51.24 Other intervertebral disc displacement, thoracic region; M48.04 Spinal stenosis, thoracic region; M47.894 Other spondylosis, thoracic region; J90 Pleural effusion, not elsewhere classified; M96.89 Other intraoperative and postprocedural complications and disorders of the musculoskeletal system; M51.34 Other intervertebral disc degeneration, thoracic region; M51.25 Other intervertebral disc displacement, thoracolumbar region; M47.895 Other spondylosis, thoracolumbar region
CPT/HCPCS: 72146

== ENCOUNTER 2025-02-15 08:28 | Outpatient (CLI) | payer BC, SELFPAY ==
--- NOTE | 2025-02-15 08:30 | CTR_ITS ---
PROCEDURE INFORMATION: Exam: CT Thoracic Spine Without Contrast Exam date and time: 02/15/2025 8:50 AM Age: 54 years old Clinical indication: Pain in thoracic spine; Prior surgery; Surgery date: 6+ months; Surgery type: Thoracic fusion; Arthrodesis, thoracic surgery x 3 starting in 07/2024; Additional info: Arthrodesis status TECHNIQUE: Imaging protocol: Computed tomography of the thoracic spine without contrast. Radiation optimization: All CT scans at this facility use at least one of these dose optimization techniques: automated exposure control; mA and/or kV adjustment per patient size (includes targeted exams where dose is matched to clinical indication); or iterative reconstruction. COMPARISON: MR thoracic spin wo con* [id number] 02/08/2025 10:55 AM RADIATION DOSE METRICS: Total DLP (mGy-cm): 609.4 FINDINGS: Bones/joints: Posterior fusion at T4, T5 and T6 without evidence of hardware failure or loosening. Prior laminectomies at T7, T8 and T9. Short segment of posterior longitudinal ligament calcification from T8 through T10. Bony encroachment on the bilateral neural foramina at T8 and on the left at T7. Soft tissues: Unremarkable. Pleural spaces: Small right-sided pleural effusion. CT/CT thoracic spin wo con* [id number] IMPRESSION: 1. Posterior fusion at T4, T5 and T6 without evidence of hardware failure or loosening. 2. Prior laminectomies at T7, T8 and T9. 3. Short segment of posterior longitudinal ligament calcification from T8 through T10. 4. Small right-sided pleural effusion. 5. Bony encroachment on the bilateral neural foramina at T8 and on the left at T7.
== END 2025-02-15 08:29 | disposition home or self-care (01) ==
PROVIDERS: PCP Nurse Practitioner Family; Visit Provider Physical Medicine & Rehabilitation
DX: Z98.1 Arthrodesis status (principal); Z98.890 Other specified postprocedural states; M48.8X4 Other specified spondylopathies, thoracic region; J90 Pleural effusion, not elsewhere classified; R93.7 Abnormal findings on diagnostic imaging of other parts of musculoskeletal system
CPT/HCPCS: 72128

== ENCOUNTER 2025-03-03 05:00 | Outpatient (RCR) | payer BC, SELFPAY | END 2025-04-01 23:59 | disposition home or self-care (01) | LOC: SPT 05:00 | PROVIDERS: PCP Nurse Practitioner Family; Visit Provider Nurse Practitioner Family | DX: G95.9 Disease of spinal cord, unspecified (principal) | CPT/HCPCS: 97110; 97116 ==

== ENCOUNTER 2025-04-02 05:00 | Outpatient (RCR) | payer BC, SELFPAY | END 2025-05-02 23:59 | disposition home or self-care (01) | LOC: SPT 05:00 | PROVIDERS: PCP Nurse Practitioner Family; Visit Provider Nurse Practitioner Family | DX: G95.9 Disease of spinal cord, unspecified (principal) | CPT/HCPCS: 97110; 97116; 97530 ==

== ENCOUNTER 2025-05-03 05:00 | Outpatient (RCR) | payer BC, SELFPAY | END 2025-06-02 23:59 | disposition home or self-care (01) | LOC: SPT 05:00 | PROVIDERS: PCP Nurse Practitioner Family; Visit Provider Nurse Practitioner Family | DX: G95.9 Disease of spinal cord, unspecified (principal); M48.04 Spinal stenosis, thoracic region; M47.14 Other spondylosis with myelopathy, thoracic region; Z98.1 Arthrodesis status | CPT/HCPCS: 97110; 97116 ==

== ENCOUNTER 2025-06-03 05:00 | Outpatient (RCR) | payer BC, SELFPAY | END 2025-07-02 23:59 | disposition home or self-care (01) | LOC: SPT 05:00 | PROVIDERS: PCP Nurse Practitioner Family; Visit Provider Nurse Practitioner Family | DX: G95.9 Disease of spinal cord, unspecified (principal); M48.04 Spinal stenosis, thoracic region; M47.14 Other spondylosis with myelopathy, thoracic region; Z98.1 Arthrodesis status | CPT/HCPCS: 97110; 97116; 97530 ==

== ENCOUNTER 2025-07-03 05:00 | Outpatient (RCR) | payer BC, SELFPAY | END 2025-08-02 23:59 | disposition home or self-care (01) | LOC: SPT 05:00 | PROVIDERS: PCP Nurse Practitioner Family; Visit Provider Nurse Practitioner Family | DX: G95.9 Disease of spinal cord, unspecified (principal); M48.04 Spinal stenosis, thoracic region; M47.14 Other spondylosis with myelopathy, thoracic region; Z98.1 Arthrodesis status | CPT/HCPCS: 97110; 97112 ==

== ENCOUNTER 2025-07-05 07:41 | Outpatient (CLI) | payer BC, SELFPAY ==
[2025-07-05 08:52] LABS: Estmated Average Glucose 329; Hemoglobin A1C 13.1 % (4.0-6.0)
[2025-07-05 09:04] LABS: Alanine Aminotransferase 23 U/L (0-33); Albumin Level 4.2 g/dL (3.5-5.2); Alkaline Phosphatase 112 U/L (35-105); Anion Gap 15.9 (5-19); Aspartate Amino Transferase 16 U/L (0-32); Blood Urea Nitrogen 16 mg/dL (6-20); Calcium 9.3 mg/dL (8.5-10.5); Carbon Dioxide 25 mmol/L (22-29); Chloride 98 mmol/L (98-107); Cholesterol 163 mg/dL (0-200); Globulin 3.0 g/dL (1.3-4.6); Glucose 360 mg/dL (65-115); HDL Cholesterol 48 mg/dL (60-100); Osmolality Calculated 296 mOsm/kg (285-295); Potassium 3.9 mmol/L (3.5-5.1); Sodium 135 mmol/L (136-145); Total Protein 7.2 g/dL (6.6-8.7); Triglycerides 237 mg/dL (0-150)
[2025-07-05 09:55] LABS: Creatinine Urine, Random 61 mg/dL (28-217); Microalbum Creatinine Ratio Ur 16 mg/dL (0-20)
== END 2025-07-05 07:42 | disposition home or self-care (01) ==
PROVIDERS: PCP Nurse Practitioner Family; Visit Provider Internal Medicine
DX: E11.622 Type 2 diabetes mellitus with other skin ulcer (principal); L98.499 Non-pressure chronic ulcer of skin of other sites with unspecified severity; E11.65 Type 2 diabetes mellitus with hyperglycemia
CPT/HCPCS: 36415; 80053; 80061; 82044; 83036

== ENCOUNTER 2025-08-03 06:30 | Outpatient (RCR) | payer BC, SELFPAY | END 2025-08-26 08:45 | disposition home or self-care (01) | LOC: SPT 06:30 | PROVIDERS: PCP Nurse Practitioner Family; Visit Provider Nurse Practitioner Family | DX: M48.04 Spinal stenosis, thoracic region (principal); G95.9 Disease of spinal cord, unspecified; M47.14 Other spondylosis with myelopathy, thoracic region; Z98.1 Arthrodesis status | CPT/HCPCS: 97110 ==

== ENCOUNTER 2025-08-16 14:09 | Outpatient (CLI) | payer BC, SELFPAY ==
[2025-08-16 15:06] LABS: Blood Urea Nitrogen 13 mg/dL (6-20); Calcium 9.3 mg/dL (8.5-10.5); Carbon Dioxide 24 mmol/L (22-29); Chloride 104 mmol/L (98-107); Glucose 175 mg/dL (65-115); Osmolality Calculated 296 mOsm/kg (285-295); Sodium 141 mmol/L (136-145)
[2025-08-16 15:11] LABS: Anion Gap 16.9 (5-19); Potassium 3.9 mmol/L (3.5-5.1)
== END 2025-08-16 14:10 | disposition home or self-care (01) ==
LOC: LAB 14:09
PROVIDERS: PCP Nurse Practitioner Family; Visit Provider Nurse Practitioner Family
DX: R60.0 Localized edema (principal)
CPT/HCPCS: 80048

== ENCOUNTER 2025-09-02 06:30 | Outpatient (RCR) | payer BC, SELFPAY | END 2025-10-02 23:59 | disposition home or self-care (01) | LOC: SPT 06:30 | PROVIDERS: Visit Provider Nurse Practitioner Family | DX: I89.0 Lymphedema, not elsewhere classified (principal) | CPT/HCPCS: 97161 ==